=== PATIENT | female | born 1970 | race Caucasian/White ===

== ENCOUNTER 2017-12-15 15:19 | Observation (INO) | payer OTHER ==
[~2017-12-15] VITALS: Ht 167.6 cm; Wt 69.4 kg
[~2017-12-15 15:19] MED LIST: ARIPIPRAZOLE5 M1 PO; ASPIRIN81 M4 PO; ATORVASTATIN CA40 M1 PO; CITALOPRAM HBR40 MG PO; CLONAZEPAM2 M2 PO; HYDROCODON-ACE1 EAC2 PO; MELOXICAM7.5 M1 PO; METFORMIN HCL1000 M1 PO; METHYLPHENIDATE20 M4 PO; OMEPRAZOLE20 M2 PO; TOPIRAMATE25 M2 PO; ZOLPIDEM TART1.75 MG SL; ZOLPIDEM TARTRAT5 M1 PO; ZYRTEC10 M3 PO
--- NOTE | 2017-12-15 15:31 | ED GI/GU/ABDOMINAL COMPLAINT ---
See Addendum History of Present Illness General Chief Complaint: Abdominal Pain/Flank Pain Stated Complaint: BIBA ABD PAIN, FALL, SYNCOPE Source: patient, EMS Exam Limitations: no limitations Vital Signs & Intake/Output Vital Signs & Intake/Output Vital Signs Date Time Temp Pulse Resp B/P B/P Pulse O2 O2 Flow FiO2 Mean Ox Delivery Rate 12/15 1940 96.8 78 18 93/50 99 Room Air 12/15 1721 89 18 107/52 99 Room Air 12/15 1646 Room Air 12/15 1521 98.1 66 18 107/57 99 Room Air Allergies Coded Allergies: NO KNOWN ALLERGIES (05/02/17) Reconcile Medications Aspirin (Aspirin*) 81 MG TAB.CHEW 81 MG PO DAILY HEART . Citalopram Hydrobromide (Citalopram HBr) 40 MG TABLET 1.5 TAB PO DAILY MENTAL HEALTH (Reported) Clonazepam 2 MG TABLET 1 TAB PO BIDP PRN ANXIETY (Reported) Metformin HCl 1,000 MG TABLET 1 TAB PO BID DIABETES (Reported) Methylphenidate HCl 20 MG TABLET 1 TAB PO BID MENTAL HEALTH (Reported) Zolpidem Tartrate 5 MG TABLET 1 TAB PO QPM SLEEP (Reported) Zolpidem Tartrate 1.75 MG TAB.SUBL 1 TAB SL PRN SLEEP (Reported) Triage Nurses Notes Reviewed? yes ? N Is pt currently ? No Onset: Abrupt Duration: constant Timing: recent history Severity Numbers: 10 Location: generalized abdomen HPI: Patient is a 47-year-old female with past medical history of anxiety depression who presents emergency room stating that the past 3 days patient has had waxing and waning substernal chest heaviness and was today patient had acute onset of suprapubic right lower quadrant abdominal pain at the pain was so severe that patient tried to ambulate to her car TO PRESENT TO THE emergency room however the pain was so severe the patient had a syncopal episode where she woke up on the driveway with noted laceration to her left head. Patient denies any tongue biting or bowel or bladder continence symptoms after the event, patient called 911 and EMS state that blood sugar was noted to be 64 on arrival patient was alert and oriented however complaining of abdominal pain. Patient denies any fever chills, denies any dysuria hematuria vaginal bleeding and discharge shortness of breath hemoptysis arm pain jaw pain nausea vomiting leg swelling history of DVT or PE (Filiberto Yanes) Past History Travel History Traveled to [place] past 21 day No Medical History Any Pertinent Medical History? 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 No (Filiberto Yanes) Review of Systems Review of Systems Constitutional: Reports: no symptoms. EENTM: Reports: no symptoms. Respiratory: Reports: no symptoms. Cardiovascular: Reports: see HPI, chest pain, syncope. GI: Reports: see HPI, abdominal pain. Genitourinary: Reports: no symptoms. Musculoskeletal: Reports: no symptoms. Skin: Reports: no symptoms. Neurological/Psychological: Reports: no symptoms. Hematologic/Endocrine: Reports: no symptoms. Immunologic/Allergic: Reports: no symptoms. All Other Systems: Reviewed and Negative (Filiberto Yanes) Physical Exam Physical Exam General Appearance: moderate distress Head: atraumatic Eyes: Bilateral: normal appearance, PERRL. Ears, Nose, Throat, Mouth: hearing grossly normal Neck: normal inspection Respiratory: no respiratory distress Cardiovascular: regular rate/rhythm Gastrointestinal: soft, tenderness Extremities: normal range of motion Neurologic/Psych: no motor/sensory deficits, awake, alert, oriented x 3, ply bander II- XII nml as tested Core Measures ACS in differential dx? Yes Sepsis Present: No Sepsis Focused Exam Completed? No (Filiberto Yanes) Progress Differential Diagnosis: AAA, AMI, appendicitis, biliary colic, bowel obstruction , colon cancer, cholecystitis, diverticulitis, ectopic , endometritis, esophageal varices, gastritis, hepatitis, hernia, hemorrhoids, ischemic bowel, inflamm bowel dis, intrauterine , kidney stone, Marianne-Christian tear, ovarian cyst, ovarian torsion, pancreatitis, PID/cervicitis, peptic ulcer, PUD/ GERD, perforated viscous, SBO, threatened AB, UTI/pyelo Plan of Care: Orders Procedure Date/time Status Nothing by Mouth 12/[address] in observation 12/15 2104 Active TROPONIN LEVEL 12/16 1999 Complete EKG 12/16 1999 Active Add-on Test (ER Only) 12/15 1953 Active PARTIAL THROMBOPLASTIN TIME 12/15 1953 Complete PROTHROMBIN TIME 12/15 1953 Complete TYPE & SCREEN (NOT X-MATCH) 12/15 1953 Complete Telemetry/Physics Tutor 12/15 1612 Active URINALYSIS 12/15 1612 Complete TROPONIN LEVEL 12/15 1612 Complete MAGNESIUM 12/15 1612 Complete LIPASE 12/15 1612 Complete LACTIC ACID 12/15 1612 Complete HUMAN BETA HCG SCREEN 12/15 1612 Complete COMPREHENSIVE METABOLIC PANEL 12/15 1612 Complete CBC WITHOUT DIFFERENTIAL 12/15 1612 Complete EKG 12/15 1612 Active Laboratory Tests 12/15/172001: Troponin I < 0.01, PT 10.0, INR 0.92, APTT 29 12/15/170: Urine Color YEL, Urine Clarity CLEAR, Urine pH 6.0, Ur Specific [place] 1.020, Urine Protein NEG, Urine Ketones NEG, Urine Nitrite NEG, Urine Bilirubin NEG, Urine Urobilinogen 1.0, Ur Leukocyte Esterase NEG, Ur Microscopic EXAM NOT REQUIRED, Urine Hemoglobin NEG, Urine Glucose NEG 12/15/17 1913: Lactic Acid Cancelled 12/15/17 1635: Anion Gap 11, Estimated GFR > 60, BUN/Creatinine Ratio 24.3, Glucose 120 H, Lactic Acid 1.3, Calcium 9.9, Magnesium 2.0, Total Bilirubin 0.7, AST 27, ALT 37 , Alkaline Phosphatase 69, Troponin I < 0.01, Total Protein 7.4, Albumin 4.5, Globulin 2.9, Albumin/Globulin Ratio 1.6, Lipase 267, Total Beta HCG NEGATIVE, CBC w Diff MAN DIFF ORDERED, RBC 5.03, MCV 88.1, MCH 29.7, MCHC 33.7, RDW 13.5, MPV 7.6, Gran % 89.7 H, Lymphocytes % 5.0 L, Monocytes % 4.4, Eosinophils % 0.7, Basophils % 0.2, Absolute Granulocytes 19.4 H, Segmented Neutrophils 82 H , Band Neutrophils 5, Absolute Lymphocytes 1.1 L, Lymphocytes 7 L, Monocytes 6 , Absolute Monocytes 1.0 H, Absolute Eosinophils 0.1, Absolute Basophils 0, Platelet Estimate ADEQUATE, Normal RBC Morphology N Patient upon first evaluation was noted to be in severe distress due to abdominal pain, patient was given morphine after multiple reexaminations the patient currently 1900 patient has significant improvement of abdominal pain and no chest pain. CT scans that show concerned of appendicitis in which patient has leukocytosis and on reexamination patient has no more point tenderness however does have localized right lower quadrant pain. Discussed patient with Dr. GARCIA in which he will perform appendectomy tonight , patient was placed nothing by mouth he IV Unasyn was administered discussed disposition plan with patient was aware and has no questions Patient had initial troponin and EKG unremarkable 2030- patient second set troponin is pending Diagnostic Imaging: Viewed by Me: CT Scan. Radiology Impression: acute abnormality Initial ED EK BPM, FIRST DEG AV BLOCK Comments: PATIENT: DORINA ESPINOZA PRESENT AGE: 47 PATIENT ACCOUNT NO: [id number] : 69 LOCATION: [facility] [place] ORDERING PHYSICIAN: Filiberto LORENZ SERVICE DATE: 12/15/17 EXAM TYPE: CAT - CT ABD & PELVIS W IV CONTRAST; CTA CHEST-PULMONARY EMBOLISM Examination: Pre and postcontrast CT, CTA chest, CT of the abdomen pelvis postcontrast. 100 mL Optiray 300. Axial imaging with coronal and sagittal reformatted images. In the chest pre and postcontrast images. These images are reviewed at an independent workstation. MIP imaging is utilized here. FINDINGS: CT CHEST: There is no filling defect to suggest a pulmonary embolism. Centrally there is no evidence for adenopathy. The hilar regions are unremarkable. Imaging lung wall. Right lung; No infiltrate or effusion. Left lung; No infiltrate or effusion. CT abdomen The liver and spleen are felt to be within normal limits. Region the pancreas is unremarkable. Adrenal glands within normal limits. There is no bulky adenopathy here. There is no free fluid. The bowel pattern is felt to be nonobstructing. In the deep pelvis no free fluid. Uterus lies to the left of midline. Bowel pattern is nonobstructing. In the pelvis is soft tissue stranding in the right lower quadrant. The appendix in the region is felt to be mildly prominent here 1 cm. Appendicitis needs to be considered. IMPRESSION: Soft tissue stranding in the region of the cecum/right lower quadrant and the appendix is in the region showing diameter of a centimeter. Appendicitis needs to be considered here. Correlation recommended. There is no filling defect to suggest PE in the chest. No significant infiltrate or effusion DICTATED BY: Gonsalo Royal MD DATE/TIME DICTATED:12/15/171902 ASSEMBLER P[employer]IC BOAT:NOLA DATE/TIME TRANSCRIBED:12/15/171902 CONFIDENTIAL, DO NOT COPY WITHOUT APPROPRIATE AUTHORIZATION. <Electronically signed in Other Vendor System> SIGNED BY: Gonsalo Royal MD 12/15/171918 (Filiberto Yanes) Departure Departure Disposition: STILL A PATIENT Condition: Stable Clinical Impression Primary Impression: Appendicitis Secondary Impressions: Chest pain Referrals: Gato Josue MD (PCP/Family) Departure Forms: Customer Survey General Discharge Information OR/GI Note Spoke With: Nicholas Garcia DO ED Treatment Decision: OLGADORINA requires urgent operative management or an emergent procedure that cannot be performed in the Emergency Room setting. Transport To: [facility] (Filiberto Yanes) PA/LODGING FACILITIES MANAGER Co-Sign Statement Statement: ED Attending supervision documentation- [x] I saw and evaluated the patient. I have also reviewed all the pertinent lab results and diagnostic results. I agree with the findings and the plan of care as documented in the PA's/LODGING FACILITIES MANAGER's documentation. [] I have reviewed the ED Record and agree with the PA's/LODGING FACILITIES MANAGER's documentation. [] Additions or exceptions (if any) to the PAs/LODGING FACILITIES MANAGER's note and plan are summarized below: [] (Parviz DESHPANDE,Myron Villanueva) Critical Care Note Critical Care Note Critical Care Time: 75-104 min (Filiberto Yanes)
[2017-12-15 17:13] LABS: ABSOLUTE BASOPHIL COUNT 0 /CUMM (0.0-0.2); ABSOLUTE EOSINOPHIL COUNT 0.1 /CUMM (0.0-0.7); ABSOLUTE GRANULOCYTE CT 19.4 /CUMM (1.4-6.5); ABSOLUTE LYMPH COUNT 1.1 /CUMM (1.2-3.4); BASOPHIL % 0.2 % (0.0-2.0); EOSINOPHIL % 0.7 % (0-5); HEMATOCRIT 44.3 % (37-47); MEAN CORPUSCULAR HGB 29.7 PG (27.0-31.0); MEAN CORPUSCULAR HGB CONC 33.7 G/DL (33.0-37.0); MEAN CORPUSCULAR VOLUME 88.1 FL (81.0-99.0); MEAN PLATELET VOLUME 7.6 FL (7.4-10.4); PLATELET COUNT 418 /CUMM (130-400); RBC DISTRIBUTION WIDTH 13.5 % (11.5-14.5); RED BLOOD CELL CT 5.03 /CUMM (4.20-5.40); WHITE BLOOD CELL COUNT 21.6 /CUMM (4.8-10.8)
[2017-12-15 17:22] LABS: GRANULOCYTE % 89.7 % (42.2-75.2)
--- NOTE | 2017-12-15 19:19 | CT SCAN REPORT ---
Examination: Pre and postcontrast CT, CTA chest, CT of the abdomen pelvis postcontrast. 100 mL Optiray 300. Axial imaging with coronal and sagittal reformatted images. In the chest pre and postcontrast images. These images are reviewed at an independent workstation. MIP imaging is utilized here. FINDINGS: CT CHEST: There is no filling defect to suggest a pulmonary embolism. Centrally there is no evidence for adenopathy. The hilar regions are unremarkable. Imaging lung wall. Right lung; No infiltrate or effusion. Left lung; No infiltrate or effusion. CT abdomen The liver and spleen are felt to be within normal limits. Region the pancreas is unremarkable. Adrenal glands within normal limits. There is no bulky adenopathy here. There is no free fluid. The bowel pattern is felt to be nonobstructing. In the deep pelvis no free fluid. Uterus lies to the left of midline. Bowel pattern is nonobstructing. In the pelvis is soft tissue stranding in the right lower quadrant. The appendix in the region is felt to be mildly prominent here 1 cm. Appendicitis needs to be considered. IMPRESSION: Soft tissue stranding in the region of the cecum/right lower quadrant and the appendix is in the region showing diameter of a centimeter. Appendicitis needs to be considered here. Correlation recommended. There is no filling defect to suggest PE in the chest. No significant infiltrate or effusion
[2017-12-15 20:13] LABS: PTT 29 SEC (25-37)
--- NOTE | 2017-12-15 21:11 | History & Physical Pre-Op ---
Jose R Lund 12/15/172039: General Information and HPI History of Present Illness: This is a 47 year-old female with a history of type 2 diabetes, anxiety and depression who presents with a sudden onset of right lower quadrant abdominal pain that began at 11 am while she was at work. She reports having to leave work early due to the pain. She describes the pain as sharp and crampy in nature, worsened with movement and improved by laying on her left side. The pain progressively worsened. While walking to her car to drive herself to the ER around 2 pm, she became dizzy and lightheaded and had a syncopal episode, hitting the left side of her head on cement, which lasted "seconds". She denies bowel/urinary incontience. She reports calling 911 and remained on the ground until the ambulance arrived. She reports associated night sweats and chills. Denies nausea, vomiting, subjective fever, urinary changes, bowel changes, recent infection/travel or sick contacts. She reports last eating spaghettiOs and drinking coffee at 8 am. She also reports a 3 day history of chest tightness and describes it "someone sitting on her chest". In the ER, CT scan revealed a soft tissue stranding in the region of the cecum/right lower quadrant and the appendix is in the region showing diameter of a centimeter and no suggestion of chest PE. Currently, she states her pain significantly improved with IV Morphine in the ER. Allergies/Medications Allergies: Coded Allergies: NO KNOWN ALLERGIES (05/02/17) Home Med list Aspirin (Aspirin*) 81 MG TAB.CHEW 81 MG PO DAILY HEART . Citalopram Hydrobromide (Citalopram HBr) 40 MG TABLET 1.5 TAB PO DAILY MENTAL HEALTH (Reported) Clonazepam 2 MG TABLET 1 TAB PO BIDP PRN ANXIETY (Reported) Metformin HCl 1,000 MG TABLET 1 TAB PO BID DIABETES (Reported) Methylphenidate HCl 20 MG TABLET 1 TAB PO BID MENTAL HEALTH (Reported) Zolpidem Tartrate 5 MG TABLET 1 TAB PO QPM SLEEP (Reported) Zolpidem Tartrate 1.75 MG TAB.SUBL 1 TAB SL PRN SLEEP (Reported) Past History Medical History Neurological: migraine EENT: TUBES IN R EAR Cardiovascular: NONE Respiratory: NONE Gastrointestinal: NONE Hepatic: NONE Renal: NONE Musculoskeletal: NONE Psychiatric: anxiety, depression Endocrine: diabetes Blood Disorders: NONE Cancer(s): NONE 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 EENTM: Reports: no symptoms. Respiratory: Reports: no symptoms. Cardiovascular: Reports: see HPI, chest pain, syncope. GI: Reports: see HPI, abdominal pain. Genitourinary: Reports: no symptoms. Musculoskeletal: Reports: no symptoms. Skin: Reports: no symptoms. Neurological/Psychological: Reports: no symptoms. Hematologic/Endocrine: Reports: no symptoms. Immunologic/Allergic: Reports: no symptoms. All Other Systems: Reviewed and Negative Exam & Diagnostic Data Last 24 Hrs of Vital Signs/I&O Vital Signs Date Time Temp Pulse Resp B/P B/P Pulse O2 O2 Flow FiO2 Mean Ox Delivery Rate 12/15 194 96.8 78 18 93/50 99 Room Air 12/15 1721 89 18 107/52 99 Room Air 12/15 1646 Room Air 12/15 1521 98.1 66 18 107/57 99 Room Air Intake & Output 12/15 1600 12/15 0800 12/15 0000 Intake Total Output Total Balance Patient 153 lb Weight Weight Estimated Measurement Method Physical Exam: General - laying in ER stretcher in [facility] with a 3 cm abrasion on the left side of of parietal region, no active bleeding, sonya Cardiac - S1S2 noted, RRR Lungs - CTAB Abdomen - soft, hypoactive bowel sounds, significantly tender to palpation in RLQ with voluntary guarding, no rebound noted Ext - no edema or calf tenderness Last 24 Hrs of Labs/Miguel: Laboratory Tests 12/15/172001: Troponin I < 0.01, PT 10.0, INR 0.92, APTT 29 12/15/170: Urine Color YEL, Urine Clarity CLEAR, Urine pH 6.0, Ur Specific [place] 1.020, Urine Protein NEG, Urine Ketones NEG, Urine Nitrite NEG, Urine Bilirubin NEG, Urine Urobilinogen 1.0, Ur Leukocyte Esterase NEG, Ur Microscopic EXAM NOT REQUIRED, Urine Hemoglobin NEG, Urine Glucose NEG 12/15/173: Lactic Acid Cancelled 12/15/17 1635: Anion Gap 11, Estimated GFR > 60, BUN/Creatinine Ratio 24.3, Glucose 120 H, Lactic Acid 1.3, Calcium 9.9, Magnesium 2.0, Total Bilirubin 0.7, AST 27, ALT 37 , Alkaline Phosphatase 69, Troponin I < 0.01, Total Protein 7.4, Albumin 4.5, Globulin 2.9, Albumin/Globulin Ratio 1.6, Lipase 267, Total Beta HCG NEGATIVE, CBC w Diff MAN DIFF ORDERED, RBC 5.03, MCV 88.1, MCH 29.7, MCHC 33.7, RDW 13.5, MPV 7.6, Gran % 89.7 H, Lymphocytes % 5.0 L, Monocytes % 4.4, Eosinophils % 0.7, Basophils % 0.2, Absolute Granulocytes 19.4 H, Segmented Neutrophils 82 H , Band Neutrophils 5, Absolute Lymphocytes 1.1 L, Lymphocytes 7 L, Monocytes 6 , Absolute Monocytes 1.0 H, Absolute Eosinophils 0.1, Absolute Basophils 0, Platelet Estimate ADEQUATE, Normal RBC Morphology N Diagnostic Data Other Results SERVICE DATE: 12/15/17 EXAM TYPE: CAT - CT ABD & PELVIS W IV CONTRAST; CTA CHEST-PULMONARY EMBOLISM Examination: Pre and postcontrast CT, CTA chest, CT of the abdomen pelvis postcontrast. 100 mL Optiray 300. Axial imaging with coronal and sagittal reformatted images. In the chest pre and postcontrast images. These images are reviewed at an independent workstation. MIP imaging is utilized here. FINDINGS: CT CHEST: There is no filling defect to suggest a pulmonary embolism. Centrally there is no evidence for adenopathy. The hilar regions are unremarkable. Imaging lung wall. Right lung; No infiltrate or effusion. Left lung; No infiltrate or effusion. CT abdomen The liver and spleen are felt to be within normal limits. Region the pancreas is unremarkable. Adrenal glands within normal limits. There is no bulky adenopathy here. There is no free fluid. The bowel pattern is felt to be nonobstructing. In the deep pelvis no free fluid. Uterus lies to the left of midline. Bowel pattern is nonobstructing. In the pelvis is soft tissue stranding in the right lower quadrant. The appendix in the region is felt to be mildly prominent here 1 cm. Appendicitis needs to be considered. IMPRESSION: Soft tissue stranding in the region of the cecum/right lower quadrant and the appendix is in the region showing diameter of a centimeter. Appendicitis needs to be considered here. Correlation recommended. There is no filling defect to suggest PE in the chest. No significant infiltrate or effusion Assessment/Plan Assessment/Plan: This is a 47 year-old female who presents with a 3 day history of chest pain, a 13 hour history of a suddent onset of right lower quadrant abdominal pain and syncopal episode with a a left-sided head abrasion. Imaging revealed acute appendicitis without evidence of PE. Proceed to OR for lap appy Keep NPO on IVF IV unasyn IV analgesics F/u repeat EKG, troponins Bacitriacin and gauze to abrasion Place in observation Anticipate d/c tomorrow if no evidence of perforation D/w Dr. Christy As Ranked By This Provider Problem List: 1. Chest pain 2. Appendicitis Jaelyn Nicholas DAVIDSON 12/15/17 2210: Attending MD Review Statement Attending Statement Attending MD Statement: examined this patient, discuss w/resident/PA/PLANT ANATOMIST, agreed w/resident/PA/PLANT ANATOMIST, reviewed EMR data (avail), reviewed images Attending Assessment/Plan: Patient seen and examined, agree with above. Abdominal pain for a couple of days , severe today and went to the ED. Pain was severe enough where she had an episode of syncope. AVSS. Abd - soft, +RLQ tenderness. WBC 18. CT scan - acute appendicitis. NPO/IVF/IV Abx, plan for Lap Appy tonight.
--- NOTE | 2017-12-15 22:20 | Operative Report ---
Operative/Inv Procedure Report Surgery Date: 12/15/17 Name of Procedure: Laparoscopic Appendectomy Pre-Operative Diagnosis: Acute appendicitis Post-Operative Diagnosis: Same Estimated Blood Loss: less than 50ml Surgeon/Chorus Master: Nicholas Loja Anesthesia: general endotracheal tube IV Fluids: 1100 cc Drains: None Specimens: Appendix Complications: None Condition: Stable Operative Indication: This is a 47-year-old female that presented to the emergency room with abdominal pain. After appropriate workup was completed the patient was diagnosed with acute appendicitis. A laparoscopic possible open appendectomy was discussed in detail. All risks including but not limited to bleeding, infection, and injury to surrounding bowel were discussed in detail. The patient understood everything and decided to proceed. Operative/Procedure Note Note: The patient was brought to the operating room and placed on the table in supine position. Venodyne stockings were placed and adequate general endotracheal anesthesia was obtained. The patient was prepped and draped in standard surgical fashion. Began the procedure by making a 2 cm transverse incision in the infraumbilical crease. Incision was carried down to the fascia. Once the fascia was clearly visualized it was picked up between 2 Vanessa clamps and divided in the midline. Once we entered the peritoneum 2 stay 0 Vicryl sutures were placed on each side and a 12 mm blunt port was inserted. The abdominal cavity was insufflated to 15 mmHg. And a 10 mm 30 laparoscope was introduced. Upon initial examination no obvious gross pathology was seen, some hyperemia and inflammatory reaction was noted in the right lower quadrant. Accessory trocars were placed, both 5 mm, one in the left lower quadrant and one suprapubic. Ascending colon was identified and traced proximally, terminal ileum was identified, and we did note the appendix coursing into the pelvis. The base of the appendix was identified and appeared healthy. Distal appendix was inflamed and thickened and adhered to the sidewall and to the omentum. Using blunt dissection and harmonic scalpel the appendix was carefully dissected away from surrounding structures. Once the appendix was away from the omentum and the sidewall the mesoappendix was divided using Harmonic scalpel maintaining hemostasis until the appendiceal base was clearly visualized and freely up in the air. At that point we switched to a 5 mm laparoscope and a 45 mm rivers Endo TOMMY load x 2 was inserted and the base was transected. The appendix was placed in an Endobag and removed through the umbilical trocar site. The abdominal cavity was reinsufflated and we switched back to a 10 mm laparoscope. Staple line was examined and no bleeding was noted. No other abnormalities were noted. The pelvis and the right lower quadrant were irrigated until clear. All ports were removed under direct visualization, no obvious bleeding was noted. The umbilical trocar site was closed using 0 Vicryl suture. The skin was closed using 4-0 Monocryl. Steri-Strips and dressings were placed. The patient was successfully extubated and transferred to the recovery room in stable condition. The patient tolerated procedure well with no complications. Findings: Dilated/hyperemic/thickened appendix, non-perforated CC: Joselo DESHPANDE,Gato
--- NOTE | 2017-12-16 01:14 | Admission Core Measures ---
Acute Coronary Syndrome (CM) ACS Core Measures Acute Coronary Syndrome Diagnosis No Congestive Heart Failure (NEW) CHF Core Measures Congestive Heart Failure Diagnosis No Cerebrovascular Accident (NEW) CVA Core Measures CVA/TIA Diagnosis No Venous Thromboembolism VTE Core Yoon (View Protocol) VTE Risk Factors Surgery No Mechanical VTE Prophylaxis d/t N/A MechProphylax Ordered No VTE Pharm Prophylaxis d/t LowRisk-No Interven Req'd (EARLY AMBULATION) Problem List As ranked by this Provider includes Assessment & Plan 1. Appendicitis HOME MEDS Home Med List Aspirin (Aspirin*) 81 MG TAB.CHEW 81 MG PO DAILY HEART Citalopram Hydrobromide (Citalopram HBr) 40 MG TABLET 1.5 TAB PO DAILY MENTAL HEALTH (Reported) Clonazepam 2 MG TABLET 1 TAB PO BIDP PRN ANXIETY (Reported) Metformin HCl 1,000 MG TABLET 1 TAB PO BID DIABETES (Reported) Methylphenidate HCl 20 MG TABLET 1 TAB PO BID MENTAL HEALTH (Reported) Zolpidem Tartrate 5 MG TABLET 1 TAB PO QPM SLEEP (Reported) Zolpidem Tartrate 1.75 MG TAB.SUBL 1 TAB SL PRN SLEEP (Reported)
[2017-12-16 02:14] VITALS: BP 102/56
[2017-12-16 06:00] VITALS: BP 110/70
--- NOTE | 2017-12-16 06:49 | PN- General Surgery ---
Subjective Subjective: Patient reports incisional pain which is fairly controlled with Percocet. She denies voiding since surgery. She denies any confusion or headache. She offers no other complaints. Objective Vital Signs and I&Os Vital Signs Date Time Temp Pulse Resp B/P B/P Pulse O2 O2 Flow FiO2 Mean Ox Delivery Rate 12/16 0214 98.1 62 16 102/56 100 Room Air 12/16 0000 99 Nasal 2.0L Cannula 12/16 2039 98.4 61 16 106/69 99 Room Air 12/15 1941 96.8 78 18 93/50 99 Room Air 12/15 1721 89 18 107/52 99 Room Air 12/15 1646 Room Air 12/15 1521 98.1 66 18 107/57 99 Room Air Intake & Output 12/16 0800 12/16 0000 12/15 1600 12/15 0800 12/15 0000 12/14 1600 Intake Total 1000 Output Total Balance 1000 Intake, IV 1000 Patient 153 lb 153 lb Weight Weight Estimated Measurement Method Physical Exam: Gen - resting comfortably in nad HEENT - left-sided small abrasion, scabbed over, sonya, no active bleeding Cardiac - S1S2 noted, RRR Lungs - CTAB Abd - soft, nondistended, [address] c/d/i, hypoactive bs, appropriately tender lester-incisionally, no rebound or guarding noted Ext - alps in place, no edema or calf tenderness Neuro - a&o x3, no gross focal deficits Current Medications: Current Medications Sig/Louise Start time Last Medication Dose Route Stop Time Status Admin Acetaminophen 650 MG Q6PRN PRN 12/15 2244 AC PO Ampicillin Sodium/ 0 .STK-MED ONE 12/15 2032 DC Sulbactam Sodium .ROUTE Ampicillin Sodium/ 1,500 MG ONCE ONE 12/15 2000 DC 12/15 Sulbactam Sodium IV 12/15 Sodium Chloride 100 ML Citalopram 40 MG DAILY 12/16 1000 AC Hydrobromide PO Clonazepam 2 MG BID 12/15 2242 AC PO 12/22 2241 Dextrose/Sodium 1,000 ML .[id number] 12/15 2244 AC 12/15 Chloride IV 2356 Insulin Aspart 0 TIDAC 12/16 0800 AC SC Methylphenidate HCl 20 MG BID 12/16 1000 AC PO Morphine Sulfate 2 MG Q2P PRN 12/15 2244 AC 12/16 IV 0621 Morphine Sulfate 0 .STK-MED ONE 12/15 1628 DC .ROUTE Morphine Sulfate 4 MG ONCE ONE 12/15 161 DC 12/15 IV 12/15 1616 1633 Ondansetron HCl 4 MG Q8P PRN 12/15 2244 AC IV Oxycodone/ 1 TAB Q4P PRN 12/15 2244 AC Acetaminophen PO Oxycodone/ 2 TAB Q4P PRN 12/15 2244 AC Acetaminophen PO Sodium Chloride 1,000 ML BOLUS ONE 12/15 161 DC 12/15 IV 12/15 1714 1633 Zolpidem Tartrate 5 MG QPM 12/15 2244 AC PO Results Last 48 Hours of Labs: Laboratory Tests 12/15 191 Chemistry Lactic Acid Cancelled Troponin I (< 0.11 ng/ml) < 0.01 Coagulation PT (9.4 - 12.5 SEC) 10.0 INR (0.90 - 1.19) 0.92 APTT (25 - 37 SEC) 29 Urines Urine Color (YEL,AMB,STR) YEL Urine Clarity (CLEAR) CLEAR Urine pH (5.0 - 8.0) 6.0 Ur Specific [place] (1.001 - 1.035) 1.020 Urine Protein (NEG,<30 MG/DL) NEG Urine Ketones (NEG) NEG Urine Nitrite (NEG) NEG Urine Bilirubin (NEG) NEG Urine Urobilinogen (0.1 - 1.0 EU/dl) 1.0 Ur Leukocyte Esterase (NEG) NEG Ur Microscopic EXAM NOT REQUIRED Urine Hemoglobin (NEG) NEG Urine Glucose (N MG/DL) NEG 12/15 1634 Chemistry Sodium (137 - 145 mmol/L) 142 Potassium (3.5 - 5.1 mmol/L) 4.1 Chloride (98 - 107 mmol/L) 102 Carbon Dioxide (22 - 30 mmol/L) 30 Anion Gap (5 - 16) 11 BUN (7 - 17 mg/dL) 17 Creatinine (0.5 - 1.0 mg/dL) 0.7 Estimated GFR (>60 ml/min) > 60 BUN/Creatinine Ratio (7 - 25 %) 24.3 Glucose (65 - 99 mg/dL) 120 H Lactic Acid (0.7 - 2.1 mmol/L) 1.3 Calcium (8.4 - 10.2 mg/dL) 9.9 Magnesium (1.6 - 2.3 mg/dL) 2.0 Total Bilirubin (0.2 - 1.3 mg/dL) 0.7 AST (14 - 36 U/L) 27 ALT (9 - 52 U/L) 37 Alkaline Phosphatase (<127 U/L) 69 Troponin I (< 0.11 ng/ml) < 0.01 Total Protein (6.3 - 8.2 g/dL) 7.4 Albumin (3.5 - 5.0 g/dL) 4.5 Globulin (1.9 - 4.2 gm/dL) 2.9 Albumin/Globulin Ratio (1.1 - 2.2 %) 1.6 Lipase (23 - 300 U/L) 267 Total Beta HCG (NEGATIVE) NEGATIVE Hematology CBC w Diff MAN DIFF ORDERED WBC (4.8 - 10.8 /CUMM) 21.6 H RBC (4.20 - 5.40 /CUMM) 5.03 Hgb (12.0 - 16.0 G/DL) 14.9 Hct (37 - 47 %) 44.3 MCV (81.0 - 99.0 FL) 88.1 MCH (27.0 - 31.0 PG) 29.7 MCHC (33.0 - 37.0 G/DL) 33.7 RDW (11.5 - 14.5 %) 13.5 Plt Count (130 - 400 /CUMM) 418 H MPV (7.4 - 10.4 FL) 7.6 Gran % (42.2 - 75.2 %) 89.7 H Lymphocytes % (20.5 - 51.1 %) 5.0 L Monocytes % (1.7 - 9.3 %) 4.4 Eosinophils % (0 - 5 %) 0.7 Basophils % (0.0 - 2.0 %) 0.2 Absolute Granulocytes (1.4 - 6.5 /CUMM) 19.4 H Segmented Neutrophils (42.2 - 75.2 %) 82 H Band Neutrophils (0.0 - 5.0 %) 5 Absolute Lymphocytes (1.2 - 3.4 /CUMM) 1.1 L Lymphocytes (20.5 - 51.1 %) 7 L Monocytes (1.7 - 9.3 %) 6 Absolute Monocytes (0.10 - 0.60 /CUMM) 1.0 H Absolute Eosinophils (0.0 - 0.7 /CUMM) 0.1 Absolute Basophils (0.0 - 0.2 /CUMM) 0 Platelet Estimate (ADEQUATE) ADEQUATE Normal RBC Morphology N Assessment/Plan Assessment/Plan 47 F presented with abdominal pain, syncope resulting in head trauma with loc s/ p fall POD 0 s/p laparoscopic appendectomy secondary to acute appendicitis. Recovering well from a surgical standpoint Order CT head to rule out bleeding in setting of trauma an loc Diabetic diet D/c ivf once tolerating diabetic diet Hold metformin x2 days Cont insulin sliding scale Resume home meds Monitor postop void F/u labs Cont observation in anticipation of d/c pending results of CT scan Will d/w Dr. Christy Core Measures Venous Thromboembolism VTE Risk Factors Surgery No Mechanical VTE Prophylaxis d/t N/A MechProphylax Ordered No VTE Pharm Prophylaxis d/t LowRisk-No Interven Req'd (EARLY AMBULATION)
[2017-12-16 07:31] VITALS: BP 110/70
[2017-12-16] MEDS ORDERED: PERCOCET 5-3251 EACH PO (07:41)
--- NOTE | 2017-12-16 07:44 | Patient Discharge Instructions ---
Discharge Instructions General Discharge Information You were seen/treated for: Acute appendicitis You had these procedures: Surgery Date: 12/15/17 Name of Procedure: Laparoscopic Appendectomy Watch for these problems: fever>101.3, increased pain, redness/swelling/drainage, shortness of breath, chest pains, dizziness No bath, but you may shower: Yes Other wound care: ok to remove outer dressings. leave white steri strips in place. keep incisions clean & dry. Diet Continue normal diet: Yes Recommended Diet: Diabetic Activity Full Activity/No Limits: No Activity Self Limited: Yes Pounds, do NOT lift more than: 10 Other activity limits: no heavy lifting. no strenuous activity. Acute Coronary Syndrome Inclusion Criteria At DC or during hospital stay patient has or had the following: ACS DIAGNOSIS No Discharge Core Measures Meds if any: Prescribed or Continued at Discharge Meds if any: NOT Prescribed or Continued at Discharge Congestive Heart Failure Inclusion Criteria At DC or during hospital stay patient has or had the following: CHF DIAGNOSIS No Discharge Core Measures Meds if any: Prescribed or Continued at Discharge Meds if any: NOT Prescribed or Continued at Discharge Cerebrovascular accident Inclusion Criteria At DC or during hospital stay patient has or had the following: CVA/TIA Diagnosis No Discharge Core Measures Meds if any: Prescribed or Continued at Discharge Meds if any: NOT Prescribed or Continued at Discharge Venous thromboembolism Inclusion Criteria VTE Diagnosis No VTE Type NONE VTE Confirmed by (Test) NONE Discharge Core Measures - Per Current guidelines, there needs to be overlap - treatment for the first 5 days of Warfarin therapy. - If discharged on Warfarin prior to 5 days of - overlap therapy, the patient will need to be - assessed for post discharge needs including - *Post discharge parental anticoagulation - *Warfarin and/or parental anticoagulation education - *Follow up date to check INR post discharge At least 5 days overlap therapy as Inpatient No Meds if any: Prescribed or Continued at Discharge Note: Overlap Therapy is Warfarin and Anticoagulant Meds if any: NOT Prescribed or Continued at Discharge
--- NOTE | 2017-12-16 07:48 | Surg Short-stay <48hrs Dis Sum ---
Visit Information Visit Dates Admission Date: 12/15/17 Discharge Date: 12/16/17 Surgical Short Stay DC Summary Admission Diagnosis: Acute appendicitis Final Diagnosis: same as above, s/p Surgery Date: 12/15/17 Name of Procedure: Laparoscopic Appendectomy Procedure(s): Surgery Date: 12/15/17 Name of Procedure: Laparoscopic Appendectomy Summary/Significant Findings: Presented to the ED on 12/15/17 with abdominal pain and imaging showing acute appendicitis. She was given unasyn, and taken to the OR for a laparoscopic appendectomy. She had a CT head in the morning due to a fall and head strike that occurred prior to her arrival to rule out bleeding or trauma. She was discharge to home once CT head done and read, tolerating diet, and pain controlled. Condition at Discharge: stable Discharge Disposition: home or self care Discharge instructions provided to patient/family: Yes Post discharge follow-up plan: follow up with in 1-2 weeks Copies to: Gato Josue MD
[2017-12-16 08:13] LABS: ABSOLUTE BASOPHIL COUNT 0 /CUMM (0.0-0.2); ABSOLUTE EOSINOPHIL COUNT 0.1 /CUMM (0.0-0.7); ABSOLUTE GRANULOCYTE CT 7.5 /CUMM (1.4-6.5); ABSOLUTE LYMPH COUNT 2.9 /CUMM (1.2-3.4); ABSOLUTE MONOCYTE COUNT 0.7 /CUMM (0.10-0.60); BASOPHIL % 0.4 % (0.0-2.0); EOSINOPHIL % 0.9 % (0-5); GRANULOCYTE % 66.7 % (42.2-75.2); MEAN CORPUSCULAR HGB 29.8 PG (27.0-31.0); MEAN CORPUSCULAR HGB CONC 33.8 G/DL (33.0-37.0); MEAN CORPUSCULAR VOLUME 88.3 FL (81.0-99.0); MEAN PLATELET VOLUME 7.8 FL (7.4-10.4); PLATELET COUNT 315 /CUMM (130-400); RBC DISTRIBUTION WIDTH 13.6 % (11.5-14.5); WHITE BLOOD CELL COUNT 11.3 /CUMM (4.8-10.8)
[2017-12-16 08:37] LABS: HEMATOCRIT 34.4 % (37-47)
--- NOTE | 2017-12-16 11:11 | CT SCAN REPORT ---
EXAMINATION: CT HEAD WITHOUT CONTRAST CLINICAL INFORMATION: Fall. Loss of consciousness. Head laceration. COMPARISON: No relevant prior imaging available. TECHNIQUE: Contiguous axial imaging was performed from the skull base to vertex without intravenous administration of contrast. DLP: 618.74 mGy-cm FINDINGS: There is no acute intracranial hemorrhage or abnormal extra-axial collection. No intracranial mass effect or midline shift. Lateral and third ventricles are normal. No hydrocephalus. Kang-white matter differentiation is preserved and there is no evidence of acute territorial infarct. The calvarium and skull base are intact. 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 The left mastoid air cells are also completely opacified. Visualized paranasal sinuses are well-aerated with exception of a large mucous retention cyst that nearly completely opacifies the left maxillary sinus. IMPRESSION: No evidence of acute territorial infarct or hemorrhage. 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
[2017-12-16 14:17] VITALS: BP 110/60
== END 2017-12-16 15:31 ==
LOC: ERH 15:19 → PACUH 22:33 → 2NB 22:33 → ENRESERV 22:40 → 2NB 23:18 → ENPENDDIS 12-16 11:50 → 2NB 12-16 15:31
PROVIDERS: Physician Assistant; Physician Assistant Surgical
DX: K35.80 Unspecified acute appendicitis (principal); K21.9 Gastro-esophageal reflux disease without esophagitis; E10.9 Type 1 diabetes mellitus without complications; Z79.84 Long term (current) use of oral hypoglycemic drugs; E78.5 Hyperlipidemia, unspecified; F90.9 Attention-deficit hyperactivity disorder, unspecified type
CPT/HCPCS: 6040; 74177; 81003; 88304; 93005; 93010; 96374; 96375; 96376; 99291; G0378; J0690; J2405; J7042